=== PATIENT | male | born 1990 | race African-American/Black ===

== ENCOUNTER 2018-07-19 19:31 | Emergency (ER) | payer SELFPAY ==
[~2018-07-19] VITALS: Ht 177.8 cm; Wt 9.1 kg
[2018-07-19] MEDS ORDERED: DIPH50 PO (19:47)
[2018-07-19] MEDS ORDERED: RISP2 PO (19:47)
[2018-07-19] MEDS ORDERED: DIVA-78 PO (19:47)
[2018-07-19] MEDS: ACETAMINOPHEN 500 MG TABLET PO ONE (21:01)
[2018-07-19] MEDS: LORazepam 2 MG/ML VIAL IM ONE (21:01)
[2018-07-19 21:37] VITALS: BP 135/70
== END 2018-07-19 21:53 | disposition home or self-care (01) ==
LOC: EMS 19:33
DX: F41.9 Anxiety disorder, unspecified (principal); R51 Headache; F20.9 Schizophrenia, unspecified; F11.90 Opioid use, unspecified, uncomplicated; F12.90 Cannabis use, unspecified, uncomplicated; F15.90 Other stimulant use, unspecified, uncomplicated; F17.210 Nicotine dependence, cigarettes, uncomplicated; Z88.8 Allergy status to other drugs, medicaments and biological substances
CPT/HCPCS: 96372; 99284; 99406; J2060

== ENCOUNTER 2018-09-23 09:11 | Inpatient (IN) | payer SELFPAY ==
[~2018-09-23] VITALS: Ht 177.8 cm; Wt 89.4 kg
[~2018-09-23 09:11] MED LIST: DIPH50 PO; DIVA-78 PO; RISP2 PO
[2018-09-23 09:37] LABS: BASOPHILS % (AUTO) 0.7 % (0.0-2.0); HEMATOCRIT 44.9 % (41-53); HEMOGLOBIN 15.5 g/dL (13.5-17.5); LYMPHOCYTES # (AUTO) 2.1 K/uL (1.0-4.8); LYMPHOCYTES % (AUTO) 24.5 % (22.0-44.0); MEAN CORPUSCULAR HEMOGLOBIN 31.9 pg (26.0-34.0); MEAN CORPUSCULAR HGB CONC 34.6 G/dL (31.0-37.0); MEAN CORPUSCULAR VOLUME 92 fL (80-100); MONOCYTES # (AUTO) 0.7 K/uL (0.1-1.0); MONOCYTES % (AUTO) 7.8 % (2.0-9.0); NEUTROPHILS # (AUTO) 5.5 K/uL (1.8-7.7); PLATELET COUNT (AUTO) 249 K/uL (150-450); RED BLOOD CELL COUNT(AUTO) 4.86 MIL/uL (4.50-5.90); RED CELL DISTRIBUTION WIDTH 14.2 % (11.5-14.5)
[2018-09-23] MEDS ORDERED: ALPR0.5T8 PO (09:38)
[2018-09-23 09:45] LABS: ANION GAP 6 mmol/L (8-16); CALCIUM, TOTAL 9.3 mg/dL (8.8-10.5); CARBON DIOXIDE 33 mmol/L (22-29); CHLORIDE 104 mmol/L (98-107); CREATININE 0.86 mg/dL (0.60-1.30); GLOMERULAR FILTR. RATE CALC > 60 mL/min (>60); GLUCOSE,RANDOM 79 mg/dL (70-110); POTASSIUM 4.1 mmol/L (3.5-5.1); SODIUM SERUM 143 mmol/L (136-145); UREA NITROGEN, BLOOD 6 mg/dL (7-18)
[2018-09-23] MEDS ORDERED: BACITRACIN 0.9 GM PACKET OINTMENT TP ONE (09:45)
[2018-09-23 09:51] LABS: ALANINE AMINOTRANSFERASE 38 U/L (12-78); ALBUMIN 4.2 g/dL (3.4-5.0); ALKALINE PHOSPHATASE 67 U/L (46-116); ASPARTATE AMINOTRANSFERASE 46 U/L (15-37); BILIRUBIN,TOTAL 0.4 mg/dL (0.1-1.0); TOTAL PROTEIN, SERUM 7.6 g/dL (6.4-8.2); VALPROIC ACID 17 mcg/mL (50-100)
[2018-09-23] MEDS ORDERED: OLANZapine 5 MG RAPDIS TABLET PO PRN (10:45)
[2018-09-23] MEDS ORDERED: ACETAMINOPHEN 325 MG TABLET PO PRN ×3 (10:45→13:15)
[2018-09-23] MEDS ORDERED: PETROLATUM,WHITE 71 GM JELLY TP PRN (13:15)
[2018-09-23] MEDS ORDERED: MAG HYDROX/AL HYDROX/SIMETH ES 30 ML SUSPENSION UDCUP PO PRN ×2 (13:15)
[2018-09-23] MEDS ORDERED: NICOTINE 14 MG/24 HOUR PATCH TD PRN ×2 (13:15)
[2018-09-23] MEDS ORDERED: ALBUTEROL SULFATE HFA 90 MCG/PUFF 8 GM INHALER IH PRN (13:15)
[2018-09-23] MEDS ORDERED: CloNIDine HCL 0.1 MG TABLET PO PRN (13:15)
[2018-09-23] MEDS ORDERED: LOPERAMIDE HCL 2 MG CAPSULE PO PRN ×2 (13:15)
[2018-09-23] MEDS ORDERED: MAGNESIUM HYDROXIDE SUSPENSION 30 ML UDCUP PO PRN ×2 (13:15)
[2018-09-23] MEDS ORDERED: GuaiFENesin/D-METHORPHAN [SUGAR-FREE] 200-20MG/10 ML SYRUP UDCUP PO PRN ×2 (13:15)
[2018-09-23] MEDS ORDERED: DOCUSATE SODIUM 100 MG CAPSULE PO PRN (13:15)
[2018-09-23] MEDS ORDERED: IBUPROFEN 400 MG TABLET PO PRN ×2 (13:15)
[2018-09-23] MEDS ORDERED: ONDANSETRON HCL 4 MG TABLET PO PRN ×2 (13:15)
[2018-09-23 13:48] VITALS: BP 117/58
[2018-09-23] MEDS ORDERED: RisperiDONE 2 MG TABLET PO SCH (17:00)
[2018-09-23] MEDS: LORazepam 2 MG TABLET PO PRN (17:45)
[2018-09-23] MEDS: IBUPROFEN 400 MG TABLET PO PRN (18:13)
[2018-09-23] MEDS: DIVALPROEX SODIUM 500 MG DR TABLET PO SCH (20:11)
[2018-09-23] MEDS: QUEtiapine FUMARATE 200 MG TABLET PO SCH (20:11)
[2018-09-23] MEDS: BACITRACIN 28.4 GM OINTMENT TP SCH (20:12)
[2018-09-24] MEDS: QUEtiapine FUMARATE 100 MG TABLET PO SCH (10:18)
[2018-09-24] MEDS: BACITRACIN 28.4 GM OINTMENT TP SCH ×2 (10:18→16:40)
[2018-09-24] MEDS: LORazepam 2 MG TABLET PO PRN ×2 (14:54→20:10)
[2018-09-24 17:16] VITALS: BP 105/67
[2018-09-24] MEDS: QUEtiapine FUMARATE 200 MG TABLET PO SCH (20:10)
[2018-09-24] MEDS: DIVALPROEX SODIUM 500 MG DR TABLET PO SCH (20:10)
[2018-09-25 06:01] LABS: BASOPHILS % (AUTO) 0.7 % (0.0-2.0); EOSINOPHILS % (AUTO) 4.3 % (1.0-6.0); HEMATOCRIT 41.8 % (41-53); HEMOGLOBIN 14.5 g/dL (13.5-17.5); LYMPHOCYTES # (AUTO) 2.9 K/uL (1.0-4.8); LYMPHOCYTES % (AUTO) 35.2 % (22.0-44.0); MEAN CORPUSCULAR HEMOGLOBIN 32.5 pg (26.0-34.0); MEAN CORPUSCULAR HGB CONC 34.7 G/dL (31.0-37.0); MEAN CORPUSCULAR VOLUME 94 fL (80-100); MONOCYTES # (AUTO) 0.7 K/uL (0.1-1.0); MONOCYTES % (AUTO) 8.6 % (2.0-9.0); NEUTROPHILS # (AUTO) 4.2 K/uL (1.8-7.7); NEUTROPHILS % (AUTO) 51.2 % (40.0-70.0); PLATELET COUNT (AUTO) 228 K/uL (150-450); RED BLOOD CELL COUNT(AUTO) 4.46 MIL/uL (4.50-5.90); RED CELL DISTRIBUTION WIDTH 14.2 % (11.5-14.5)
[2018-09-25 06:40] LABS: ALANINE AMINOTRANSFERASE 29 U/L (12-78); ALBUMIN 3.7 g/dL (3.4-5.0); ALKALINE PHOSPHATASE 65 U/L (46-116); ANION GAP 2 mmol/L (8-16); ASPARTATE AMINOTRANSFERASE 25 U/L (15-37); BILIRUBIN,TOTAL 0.4 mg/dL (0.1-1.0); CALCIUM, TOTAL 9.1 mg/dL (8.8-10.5); CARBON DIOXIDE 33 mmol/L (22-29); CHLORIDE 103 mmol/L (98-107); CREATININE 1.02 mg/dL (0.60-1.30); GLOMERULAR FILTR. RATE CALC > 60 mL/min (>60); GLUCOSE,RANDOM 86 mg/dL (70-110); POTASSIUM 4.3 mmol/L (3.5-5.1); SODIUM SERUM 138 mmol/L (136-145); THYROID STIMULATING HORMONE 0.61 uIU/mL (0.36-3.74); TOTAL PROTEIN, SERUM 6.8 g/dL (6.4-8.2); UREA NITROGEN, BLOOD 14 mg/dL (7-18)
[2018-09-25] MEDS: BACITRACIN 28.4 GM OINTMENT TP SCH ×2 (09:00→16:49)
[2018-09-25] MEDS: MULTIVITAMINS WITH MINERALS, THERAPEUTIC TABLET PO SCH (09:42)
[2018-09-25] MEDS: QUEtiapine FUMARATE 100 MG TABLET PO SCH (09:42)
[2018-09-25] MEDS: LORazepam 2 MG TABLET PO PRN (11:18)
[2018-09-25] MEDS: DIVALPROEX SODIUM 500 MG DR TABLET PO SCH (20:51)
[2018-09-25] MEDS: QUEtiapine FUMARATE 200 MG TABLET PO SCH (20:51)
[2018-09-25] MEDS: ZOLPIDEM TARTRATE 10 MG TABLET PO PRN (20:52)
[2018-09-26] MEDS: QUEtiapine FUMARATE 100 MG TABLET PO SCH (08:55)
[2018-09-26] MEDS: MULTIVITAMINS WITH MINERALS, THERAPEUTIC TABLET PO SCH (08:56)
[2018-09-26] MEDS: BACITRACIN 28.4 GM OINTMENT TP SCH (09:02)
[2018-09-26] MEDS: LORazepam 2 MG TABLET PO PRN ×2 (09:36→13:57)
[2018-09-26 16:30] VITALS: BP 126/77
[2018-09-26] MEDS: DIVALPROEX SODIUM 500 MG DR TABLET PO SCH (20:07)
[2018-09-26] MEDS: QUEtiapine FUMARATE 300 MG TABLET PO SCH (20:07)
[2018-09-27] MEDS: QUEtiapine FUMARATE 100 MG TABLET PO SCH (09:18)
[2018-09-27] MEDS: MULTIVITAMINS WITH MINERALS, THERAPEUTIC TABLET PO SCH (09:18)
[2018-09-27] MEDS: LORazepam 2 MG TABLET PO PRN ×3 (09:23→20:13)
[2018-09-27] MEDS: IBUPROFEN 400 MG TABLET PO PRN (16:58)
[2018-09-27 17:00] VITALS: BP 127/79
[2018-09-27] MEDS: QUEtiapine FUMARATE 300 MG TABLET PO SCH (20:13)
[2018-09-27] MEDS: DIVALPROEX SODIUM 500 MG DR TABLET PO SCH (20:13)
[2018-09-28] MEDS: LORazepam 2 MG TABLET PO PRN ×3 (06:20→18:42)
[2018-09-28] MEDS: MULTIVITAMINS WITH MINERALS, THERAPEUTIC TABLET PO SCH (09:15)
[2018-09-28] MEDS: QUEtiapine FUMARATE 100 MG TABLET PO SCH (09:15)
[2018-09-28] MEDS: IBUPROFEN 400 MG TABLET PO PRN (18:42)
[2018-09-28] MEDS: QUEtiapine FUMARATE 300 MG TABLET PO SCH (20:05)
[2018-09-28] MEDS: DIVALPROEX SODIUM 500 MG DR TABLET PO SCH (20:05)
[2018-09-28] MEDS: ZOLPIDEM TARTRATE 10 MG TABLET PO PRN (20:14)
[2018-09-29] MEDS: LORazepam 2 MG TABLET PO PRN ×2 (02:38→09:20)
[2018-09-29] MEDS: QUEtiapine FUMARATE 100 MG TABLET PO SCH (09:18)
[2018-09-29] MEDS: MULTIVITAMINS WITH MINERALS, THERAPEUTIC TABLET PO SCH (09:18)
[2018-09-29] MEDS ORDERED: QUET100T PO (09:37)
[2018-09-29] MEDS ORDERED: QUET300T2 PO (09:37)
== END 2018-09-29 11:15 | disposition home or self-care (01) | DRG 885 ==
LOC: EMS 09:12 → 3EI 11:48
PROVIDERS: ADMIT Psychiatry & Neurology Psychiatry; ATTEND Psychiatry & Neurology Psychiatry
DX: F25.0 Schizoaffective disorder, bipolar type (principal); F19.20 Other psychoactive substance dependence, uncomplicated; F10.10 Alcohol abuse, uncomplicated; F11.90 Opioid use, unspecified, uncomplicated; F15.90 Other stimulant use, unspecified, uncomplicated; F17.200 Nicotine dependence, unspecified, uncomplicated; F41.9 Anxiety disorder, unspecified; F94.0 Selective mutism; G40.909 Epilepsy, unspecified, not intractable, without status epilepticus; S61.012A Laceration without foreign body of left thumb without damage to nail, initial encounter; W22.09XA Striking against other stationary object, initial encounter; Y93.89 Activity, other specified; Z71.41 Alcohol abuse counseling and surveillance of alcoholic; Z71.6 Tobacco abuse counseling; Y92.89 Other specified places as the place of occurrence of the external cause; Y99.8 Other external cause status
CPT/HCPCS: 84443; G0480

== ENCOUNTER 2018-12-13 06:47 | Inpatient (IN) | payer MEDICARE ==
[~2018-12-13] VITALS: Ht 177.8 cm; Wt 100.0 kg
[~2018-12-13 06:47] MED LIST changes: -DIPH50 PO; +QUET100T PO; +QUET300T2 PO; -RISP2 PO
[2018-12-13] MEDS ORDERED: GABA-533 PO (07:17)
[2018-12-13 07:36] LABS: BASOPHILS % (AUTO) 0.5 % (0.0-2.0); EOSINOPHILS % (AUTO) 2.8 % (1.0-6.0); HEMATOCRIT 40.2 % (41-53); HEMOGLOBIN 13.3 g/dL (13.5-17.5); LYMPHOCYTES # (AUTO) 1.5 K/uL (1.0-4.8); LYMPHOCYTES % (AUTO) 16.4 % (22.0-44.0); MEAN CORPUSCULAR HEMOGLOBIN 31.7 pg (26.0-34.0); MEAN CORPUSCULAR VOLUME 96 fL (80-100); MONOCYTES % (AUTO) 11.7 % (2.0-9.0); NEUTROPHILS # (AUTO) 6.1 K/uL (1.8-7.7); NEUTROPHILS % (AUTO) 68.6 % (40.0-70.0); PLATELET COUNT (AUTO) 204 K/uL (150-450); RED BLOOD CELL COUNT(AUTO) 4.18 MIL/uL (4.50-5.90); RED CELL DISTRIBUTION WIDTH 13.9 % (11.5-14.5)
[2018-12-13 08:06] LABS: ANION GAP 8 mmol/L (8-16); CALCIUM, TOTAL 9.1 mg/dL (8.8-10.5); CARBON DIOXIDE 26 mmol/L (22-29); CHLORIDE 106 mmol/L (98-107); CREATININE 0.87 mg/dL (0.60-1.30); GLOMERULAR FILTR. RATE CALC > 60 mL/min (>60); GLUCOSE,RANDOM 95 mg/dL (70-110); SODIUM SERUM 140 mmol/L (136-145); UREA NITROGEN, BLOOD 11 mg/dL (7-18)
[2018-12-13 08:12] LABS: ALANINE AMINOTRANSFERASE 50 U/L (12-78); ALBUMIN 4.1 g/dL (3.4-5.0); ALKALINE PHOSPHATASE 56 U/L (46-116); ASPARTATE AMINOTRANSFERASE 92 U/L (15-37); BILIRUBIN,TOTAL 0.3 mg/dL (0.1-1.0); VALPROIC ACID 9 mcg/mL (50-100)
[2018-12-13 08:35] LABS: ACETAMINOPHEN < 2 mcg/mL (10-30)
[2018-12-13] MEDS ORDERED: LORazepam 2 MG/ML VIAL IM ONE ×3 (09:00→18:45)
[2018-12-13] MEDS ORDERED: DiphenhydrAMINE HCL 50 MG/ML VIAL IM ONE ×2 (14:30→18:45)
[2018-12-13 14:32] LABS: AMPHET/METH SCREEN,URINE NEGATIVE (NEGATIVE); BARBITURATE SCREEN, URINE NEGATIVE (NEGATIVE); BENZODIAZEPINES SCREEN,URINE NEGATIVE (NEGATIVE); CANNABINOID SCREEN,URINE NEGATIVE (NEGATIVE); COCAINE SCREEN,URINE NEGATIVE (NEGATIVE); METHADONE SCREEN, URINE NEGATIVE (NEGATIVE); OPIATE SCREEN,URINE NEGATIVE (NEGATIVE)
[2018-12-13 14:33] LABS: PHENCYCLIDINE SCREEN,URINE NEGATIVE (NEGATIVE)
[2018-12-13 16:02] VITALS: BP 132/85
[2018-12-13] MEDS ORDERED: HALOPERIDOL LACTATE 5 MG/ML VIAL ONE (18:34)
[2018-12-13] MEDS ORDERED: HALOPERIDOL LACTATE 5 MG/ML VIAL IM ONE (18:45)
[2018-12-14] MEDS: OLANZapine 5 MG RAPDIS TABLET PO PRN ×2 (03:55→08:18)
[2018-12-14] MEDS: LORazepam 2 MG TABLET PO PRN ×3 (03:55→12:24)
[2018-12-14 08:00] VITALS: BP 130/58
[2018-12-14] MEDS: QUEtiapine FUMARATE 100 MG TABLET PO SCH (12:24)
[2018-12-14 18:11] VITALS: BP 133/78
[2018-12-14] MEDS: QUEtiapine FUMARATE 300 MG TABLET PO SCH (20:25)
[2018-12-14] MEDS: DIVALPROEX SODIUM 500 MG DR TABLET PO SCH (20:25)
[2018-12-14] MEDS: GABAPENTIN 400 MG CAPSULE PO SCH (20:25)
[2018-12-14] MEDS ORDERED: ALBUTEROL SULFATE HFA 90 MCG/PUFF 8 GM INHALER IH PRN (20:30)
[2018-12-14] MEDS ORDERED: MAG HYDROX/AL HYDROX/SIMETH ES 30 ML SUSPENSION UDCUP PO PRN (20:30)
[2018-12-14] MEDS ORDERED: OMEPRAZOLE 20 MG CAPSULE PO PRN (20:30)
[2018-12-14] MEDS ORDERED: IBUPROFEN 600 MG TABLET PO PRN (20:30)
[2018-12-14] MEDS ORDERED: LOPERAMIDE HCL 2 MG CAPSULE PO PRN (20:30)
[2018-12-14] MEDS ORDERED: DOCUSATE SODIUM 100 MG CAPSULE PO PRN (20:30)
[2018-12-14] MEDS ORDERED: MAGNESIUM HYDROXIDE SUSPENSION 30 ML UDCUP PO PRN (20:30)
[2018-12-14] MEDS ORDERED: BENZOCAINE/MENTHOL LOZENGE MM PRN (20:30)
[2018-12-14] MEDS ORDERED: ONDANSETRON HCL 4 MG TABLET PO PRN (20:30)
[2018-12-14] MEDS ORDERED: PETROLATUM,WHITE 28 GM JELLY TP PRN (20:30)
[2018-12-14] MEDS ORDERED: BACITRACIN 28.4 GM OINTMENT TP PRN (20:30)
[2018-12-14] MEDS ORDERED: CloNIDine HCL 0.1 MG TABLET PO PRN (20:30)
[2018-12-14] MEDS ORDERED: ACETAMINOPHEN 325 MG TABLET PO PRN (20:30)
[2018-12-14] MEDS: ZOLPIDEM TARTRATE 10 MG TABLET PO PRN (21:58)
[2018-12-15] MEDS: LORazepam 2 MG TABLET PO PRN ×4 (04:34→17:37)
[2018-12-15 04:37] VITALS: BP 156/96
[2018-12-15 08:39] VITALS: BP 128/73
[2018-12-15] MEDS: QUEtiapine FUMARATE 100 MG TABLET PO SCH (08:40)
[2018-12-15] MEDS: OLANZapine 5 MG RAPDIS TABLET PO PRN ×3 (08:40→17:37)
[2018-12-15 16:55] VITALS: BP 147/77
[2018-12-15] MEDS: QUEtiapine FUMARATE 300 MG TABLET PO SCH (21:46)
[2018-12-15] MEDS: GABAPENTIN 400 MG CAPSULE PO SCH (21:46)
[2018-12-15] MEDS: DIVALPROEX SODIUM 500 MG DR TABLET PO SCH (21:46)
[2018-12-15 21:50] VITALS: BP 125/84
[2018-12-15] MEDS: ZOLPIDEM TARTRATE 10 MG TABLET PO PRN (22:04)
[2018-12-16] MEDS: LORazepam 2 MG TABLET PO PRN ×3 (04:18→14:57)
[2018-12-16 05:06] VITALS: BP 117/84
[2018-12-16] MEDS: QUEtiapine FUMARATE 100 MG TABLET PO SCH (08:29)
[2018-12-16 09:06] VITALS: BP 126/73
[2018-12-16] MEDS: OLANZapine 5 MG RAPDIS TABLET PO PRN (14:57)
[2018-12-16] MEDS ORDERED: DIVA500T69 PO (15:49)
[2018-12-16] MEDS ORDERED: GABA-533 PO (15:52)
== END 2018-12-16 16:20 | disposition home or self-care (01) | DRG 885 ==
LOC: EMS 06:49 → 3EC 15:10 → B3A 12-15 20:00
PROVIDERS: ADMIT Psychiatry & Neurology Psychiatry; ATTEND Psychiatry & Neurology Psychiatry
DX: F25.9 Schizoaffective disorder, unspecified (principal); F41.9 Anxiety disorder, unspecified; F17.200 Nicotine dependence, unspecified, uncomplicated; K59.00 Constipation, unspecified; G47.00 Insomnia, unspecified; G40.909 Epilepsy, unspecified, not intractable, without status epilepticus; F94.0 Selective mutism; T50.902A Poisoning by unspecified drugs, medicaments and biological substances, intentional self-harm, initial encounter; Z78.1 Physical restraint status; Y92.89 Other specified places as the place of occurrence of the external cause
CPT/HCPCS: 93005; 96372; G0480; G0481; J1200; J1630; J2060